=== PATIENT | male | born 1990 | race Caucasian/White ===

== ENCOUNTER 2018-06-28 05:45 | Emergency (ER) | payer OTHER ==
[~2018-06-28] VITALS: Ht 172.7 cm; Wt 86.2 kg
[2018-06-28 05:45] VITALS: BP 169/106
== END 2018-06-28 06:30 ==
LOC: MED 05:45
DX: R07.89 Other chest pain (principal); R03.0 Elevated blood-pressure reading, without diagnosis of hypertension; V49.49XA Driver injured in collision with other motor vehicles in traffic accident, initial encounter; Y93.I9 Activity, other involving external motion; Y92.488 Other paved roadways as the place of occurrence of the external cause; Y99.8 Other external cause status
CPT/HCPCS: 93005; 99283

== ENCOUNTER 2023-12-16 10:10 | Emergency (ER) | payer OTHER ==
[~2023-12-16] VITALS: Ht 170.2 cm; Wt 95.4 kg
[2023-12-16 10:34] VITALS: BP 150/90; PULSE 79; RESP 20; TEMP 99.4; O2SAT 96
[2023-12-16] MEDS ORDERED: OMEP20EC11 PO (13:18)
[2023-12-16] MEDS ORDERED: FAMO-90 PO (13:18)
[2023-12-16] MEDS: ALUMINUM HYD/MAG/SIMETHICONE 30 ML UDC PO ONE (13:28)
[2023-12-16 13:44] VITALS: BP 134/60; PULSE 78; RESP 17; TEMP 98.3; O2SAT 98
== END 2023-12-16 13:45 | disposition home or self-care (01) ==
LOC: MED 10:10
DX: K29.20 Alcoholic gastritis without bleeding (principal); R03.0 Elevated blood-pressure reading, without diagnosis of hypertension; K21.9 Gastro-esophageal reflux disease without esophagitis; Z79.899 Other long term (current) drug therapy
CPT/HCPCS: 99283